=== PATIENT | male | born 1940 | race Caucasian/White ===

== ENCOUNTER → 2019-10-14 | Outpatient (CLI) | payer OTHER, BC ==
[~2019-10-14] MED LIST: AMLODIPINE BESY10 MG PO; DIOVAN HCT 3201 EAC1 PO; HYDROCODON-ACE1 EAC7 PO; PROTONIX40 M2 PO; SIMVASTATIN20 MG PO; TAMSULOSIN HCL0.4 M1 PO; TOPROL XL50 MG PO
== END ==
LOC: SJCVC 13:22
PROVIDERS: ATTEND Internal Medicine Cardiovascular Disease
DX: I25.10 Atherosclerotic heart disease of native coronary artery without angina pectoris (principal); I10 Essential (primary) hypertension; E78.00 Pure hypercholesterolemia, unspecified; I73.9 Peripheral vascular disease, unspecified; I77.1 Stricture of artery; I65.23 Occlusion and stenosis of bilateral carotid arteries; E78.1 Pure hyperglyceridemia; Z79.899 Other long term (current) drug therapy; Z82.49 Family history of ischemic heart disease and other diseases of the circulatory system; Z87.891 Personal history of nicotine dependence

== ENCOUNTER → 2020-10-28 | Outpatient (CLI) | payer OTHER, BC | LOC: SJCVCIMAG 07:18 | PROVIDERS: ATTEND Internal Medicine Cardiovascular Disease | DX: I77.89 Other specified disorders of arteries and arterioles (principal); I10 Essential (primary) hypertension; I71.9 Aortic aneurysm of unspecified site, without rupture; I25.10 Atherosclerotic heart disease of native coronary artery without angina pectoris; E78.5 Hyperlipidemia, unspecified; Z98.890 Other specified postprocedural states; Z95.5 Presence of coronary angioplasty implant and graft ==

== ENCOUNTER → 2020-11-10 | Outpatient (CLI) | payer OTHER, BC | LOC: MRI 09:07 | PROVIDERS: ATTEND Internal Medicine Cardiovascular Disease | DX: M47.22 Other spondylosis with radiculopathy, cervical region (principal); I67.82 Cerebral ischemia; E86.9 Volume depletion, unspecified; M25.78 Osteophyte, vertebrae; M48.02 Spinal stenosis, cervical region; R51.9 Headache, unspecified ==

== ENCOUNTER 2020-11-19 06:18 | Emergency (ER) | payer OTHER, BC ==
[~2020-11-19] VITALS: Ht 165.1 cm; Wt 81.7 kg
[2020-11-19] MEDS ORDERED: LIPITOR 40 MG T40 M1 PO (06:42)
[2020-11-19] MEDS ORDERED: OLMESARTAN MEDO40 MG PO (06:43)
[2020-11-19 07:50] LABS: ABSOLUTE NEUTROPHILS 3.7 thou/uL (1.4-8.2); BASOPHILS 0.6 % (0.0-2.0); EOSINOPHILS 2.5 % (0.0-3.0); HEMATOCRIT 45.5 % (42.0-52.0); LYMPHOCYTES 34.9 % (24.0-44.0); MCH 30.1 pg (26.0-34.0); MCV 91.3 fL (80.0-100.0); MONOCYTES 10.4 % (1.0-8.0); PLATELET COUNT 154 thou/uL (150-400); POLYS 51.6 % (36.0-66.0); RBC 4.98 mil/uL (4.50-6.00); RDW 14.3 % (10.5-14.5); WBC 7.1 thou/uL (4.0-11.0)
[2020-11-19 08:05] LABS: ANION GAP 12 mmol/L (7-16); BUN 13 mg/dL (7-18); CALCIUM 9.2 mg/dL (8.5-10.1); CHLORIDE 105 mmol/L (98-107); CO2 28 mmol/L (21-32); CREATININE 1.3 mg/dL (0.7-1.3); GLUCOSE 126 mg/dL (74-106); POTASSIUM 3.5 mmol/L (3.5-5.1); SODIUM 145 mmol/L (136-145)
[2020-11-19 08:15] LABS: ALBUMIN 4.4 g/dL (3.4-5.0); MAGNESIUM 2.2 mg/dL (1.8-2.4); SGOT 34 U/L (15-37); SGPT 38 U/L (16-63); TOTAL BILIRUBIN 0.4 mg/dL (0.2-1.0); TOTAL PROTEIN 8.3 g/dL (6.4-8.2); TROPONIN-I <0.06 ng/mL (<0.06)
[2020-11-19] MEDS ORDERED: CLINDAMYCIN HC300 MG PO (08:17)
[2020-11-19 08:20] VITALS: BP 150/96
--- NOTE | 2020-11-20 09:29 | EKG ---
[address] [address] [place] [address] ELECTROCARDIOGRAM REPORT Name: RICARDO BERRY EDPROSPECT Room #: DEP Marie#: [id number] Admission: 11/19/20 Attend Phys: Discharge: 11/19/20 Date of : 36 Report #: [id number] [facility] ED Test Date: 2020-11-19 Test Time: 06:47:02 Pat Name: RICARDO BERRY Department: Room: Gender: M [employer]: beverly : 1940 Requested By: Car Calvo Order Number: [id number] MD: Benjamin Ozuna Measurements Intervals [place] Rate: 80 P: 13 CA: 175 QRS: -17 QRSD: 102 T: 56 QT: 403 QTc: 465 Interpretive Statements Sinus rhythm Abnormal R-wave progression, late transition Compared to ECG 09/01/2004 07:31:07 T-wave abnormality no longer present Electronically Signed On 11-20-2020 9:29:10 CDT by Benjamin Ozuna [email or web address] <ELECTRONICALLY SIGNED> By: Benjamin Ozuna MD, [facility] 11/20/20 [id number] Benjamin Ozuna MD, FACC /EPI
== END 2020-11-19 08:20 | disposition home or self-care (01) ==
LOC: ER 06:18
PROVIDERS: Emergency Medicine
DX: J32.9 Chronic sinusitis, unspecified (principal); G89.29 Other chronic pain; I10 Essential (primary) hypertension; M19.90 Unspecified osteoarthritis, unspecified site; E78.5 Hyperlipidemia, unspecified; Z79.2 Long term (current) use of antibiotics; Z79.899 Other long term (current) drug therapy

== ENCOUNTER → 2020-11-24 | Outpatient (CLI) | payer OTHER, BC ==
[~2020-11-24] MED LIST changes: +CLINDAMYCIN HC300 MG PO; +LIPITOR 40 MG T40 M1 PO; +OLMESARTAN MEDO40 MG PO
[2020-11-24 08:40] LABS: CREATININE 1.4 mg/dL (0.7-1.3)
== END ==
LOC: CAT 07:24
PROVIDERS: ATTEND Internal Medicine Cardiovascular Disease
DX: I71.4 Abdominal aortic aneurysm, without rupture (principal); I77.4 Celiac artery compression syndrome; N40.0 Benign prostatic hyperplasia without lower urinary tract symptoms; R51.9 Headache, unspecified; M54.2 Cervicalgia